=== PATIENT | male | born 1955 | race Caucasian/White ===

== ENCOUNTER 2017-04-26 09:24 | Emergency (ER) | payer BC ==
[~2017-04-26] VITALS: Ht 175.3 cm; Wt 88.3 kg
[~2017-04-26 09:24] MED LIST: ACET-1256 PO; ASPI81TA28 PO; ATEN-175 PO; ATOR-22 PO; ESCI10TA17 PO; ONDA4TAB7 SL; OXYC-57 PO; TADA10TA PO; WARF2TAB PO
[2017-04-26 09:31] VITALS: Ht 175.3 cm; Wt 88.3 kg
[2017-04-26] MEDS ORDERED: MoRPHine SULFATE 10 MG/ML CARP/VIAL IV STA ×2 (10:08→12:34)
[2017-04-26] MEDS ORDERED: SODIUM CHLORIDE 0.9% 1000ML 1,000 ML IV STA (10:08)
[2017-04-26] MEDS ORDERED: ONDANSETRON INJ 2 MG/ML 2 ML VIAL IV STA (10:08)
[2017-04-26] MEDS ORDERED: MoRPHine SULFATE 4 MG/ML 1 ML CARP\\VIAL ONE ×2 (10:24→12:46)
[2017-04-26 10:54] LABS: BASO % 0.3 %; BASO ABS # 0.03 K/uL (0-0.2); COMPLETE YES; HEMATOCRIT 40.6 % (42-52); IG% 0.3 %; LYMPH % 25.7 %; LYMPH ABS # 2.87 K/uL (1.2-3.4); MEAN CELL VOLUME 87.5 fL (80-100); MEAN CORPUSCULAR HEMOGLOBIN 30.2 pg (25-34); MEAN CORPUSCULAR HGB CONC 34.5 g/dl (32-36); MEAN PLATELET VOLUME 10.3 fL (7.4-10.4); NEUT % 62.7 %; PLATELET COUNT 314 K/uL (130-400); RED BLOOD COUNT 4.64 M/uL (4.7-6.1); WHITE BLOOD COUNT 11.18 K/uL (4.8-10.8)
[2017-04-26] MEDS ORDERED: METO50TA17 PO (10:58)
[2017-04-26] MEDS ORDERED: NRN100 PO (10:58)
[2017-04-26 11:08] LABS: BUN/CREATININE RATIO 16.5 (10-20); CREATININE 0.63 mg/dl (0.60-1.40); POTASSIUM 3.4 mmol/L (3.5-5.1)
--- NOTE | 2017-04-26 12:02 | DIAGNOSTIC IMAGING REPORT ---
LUMBAR SPINE CT CT DOSE: 857.64 mGy.cm HISTORY: Back pain TECHNIQUE: Multiaxial CT images of the lumbar spine were performed and reformatted in the sagittal and coronal plane without the use of contrast. A dose lowering technique was utilized adhering to the principles of ALARA. COMPARISON: None. FINDINGS: Mild superior endplate compression deformity at L1. This is to the age indeterminate but likely old. There is 2 mm of retropulsion of the posterior superior corner of the L1 vertebral body. No significant central canal narrowing at this level. Remaining vertebral body heights are maintained. L5-S1 demonstrates mild disc space narrowing. Mild facet osteoarthritis within the lower lumbar spine. The visualized sacrum is intact. No endplate erosions. Minimal prevertebral fat stranding anterior to the L5-S1 disc space. Mild/moderate central canal narrowing at L4-L5 and L5-S1 due to the small disc bulges and facet hypertrophy. IMPRESSION: 1. Mild superior endplate compression deformity at L1 which is likely old. No acute fractures identified within the lumbar spine. 2. Mild degenerative changes seen within the lower lumbar spine as described above. 3. Minimal prevertebral fat stranding at the L5-S1 disc space. This is of uncertain clinical significance. Electronically signed by: Clayton Johnson M.D. 04/26/2017 12:01 PM Dictated Date/Time: 04/26/2017 11:53 AM
[2017-04-26 12:06] LABS: URINE APPEARANCE CLEAR (CLEAR); URINE BILIRUBIN NEG (NEG); URINE COLOR YELLOW; URINE NITRITE NEG (NEG); URINE SPECIFIC GRAVITY 1.023 (1.000-1.030); UROBILINOGEN NEG (NEG)
[2017-04-26 12:26] LABS: MANUAL MICROSCOPIC REQUIRED? NO; REVIEW REQ? NO
[2017-04-26 14:08] VITALS: BP 148/92; PULSE 64; TEMP 36.9; O2SAT 98
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
== END 2017-04-26 14:08 | disposition home or self-care (01) ==
LOC: C.EDB 09:25 → C.EDC 14:08
DX: M54.16 Radiculopathy, lumbar region (principal); M19.90 Unspecified osteoarthritis, unspecified site; I10 Essential (primary) hypertension; E78.5 Hyperlipidemia, unspecified; Z90.89 Acquired absence of other organs; Z98.818 Other dental procedure status; Z98.890 Other specified postprocedural states; Z79.82 Long term (current) use of aspirin; Z79.899 Other long term (current) drug therapy